=== PATIENT | male | born 1970 | race Caucasian/White ===

== ENCOUNTER 2016-10-01 19:04 | Emergency (ER) | payer OTHER ==
[~2016-10-01] VITALS: Ht 167.6 cm; Wt 99.8 kg
[~2016-10-01 19:04] MED LIST: ANAPROX DS550 MG PO; DAYPRO600 M1 PO; FLEXERIL10 MG PO; K-Lyte/Cl25 MEQ PO; LASIX40 MG PO; MEDROL DOSEPAK4 MG PO; MOTRIN800 MG PO; NAPROSYN500 MG PO; NKHM; ROBAXIN750 MG PO; TOBREX OPHTH S2.5 ML OPH; VICODIN 500 MG-1 TAB PO
[2016-10-01] MEDS ORDERED: Motrin,Rufen800 MG PO (20:36)
== END 2016-10-01 20:37 | disposition home or self-care (01) ==
LOC: ED 19:04
DX: S46.012A Strain of muscle(s) and tendon(s) of the rotator cuff of left shoulder, initial encounter (principal); S46.011A Strain of muscle(s) and tendon(s) of the rotator cuff of right shoulder, initial encounter; F17.200 Nicotine dependence, unspecified, uncomplicated; X58.XXXA Exposure to other specified factors, initial encounter; Y93.89 Activity, other specified; Y92.69 Other specified industrial and construction area as the place of occurrence of the external cause; Y99.9 Unspecified external cause status

== ENCOUNTER 2017-02-08 13:48 | Emergency (ER) | payer OTHER ==
[~2017-02-08] VITALS: Wt 99.8 kg
[~2017-02-08 13:48] MED LIST changes: +Motrin,Rufen800 MG PO
[2017-02-08] MEDS ORDERED: 'PARAFON FORTE500 M1 PO (14:19)
[2017-02-08] MEDS ORDERED: NAPROSYN500 MG PO (14:19)
== END 2017-02-08 15:23 | disposition home or self-care (01) ==
LOC: ED 13:48
DX: M54.9 Dorsalgia, unspecified (principal); R03.0 Elevated blood-pressure reading, without diagnosis of hypertension; F17.200 Nicotine dependence, unspecified, uncomplicated

== ENCOUNTER 2017-02-27 20:50 | Emergency (ER) | payer OTHER ==
[~2017-02-27] VITALS: Ht 167.6 cm; Wt 102.1 kg
[~2017-02-27 20:50] MED LIST changes: +'PARAFON FORTE500 M1 PO
[2017-02-27] MEDS ORDERED: BENADRYL ALLERG25 M5 PO (21:14)
[2017-02-27] MEDS ORDERED: DELTASONE20 M1 PO (21:14)
== END 2017-02-27 21:19 | disposition home or self-care (01) ==
LOC: ED 20:50
DX: R21 Rash and other nonspecific skin eruption (principal); F17.200 Nicotine dependence, unspecified, uncomplicated

== ENCOUNTER 2017-06-07 13:16 | Emergency (ER) | payer OTHER ==
[~2017-06-07] VITALS: Wt 104.3 kg
[~2017-06-07 13:16] MED LIST changes: +BENADRYL ALLERG25 M5 PO; +DELTASONE20 M1 PO
[2017-06-07] MEDS ORDERED: ZOFRAN ODT4 MG SL (15:01)
== END 2017-06-07 20:25 | disposition home or self-care (01) ==
LOC: ED 13:16
DX: K52.9 Noninfective gastroenteritis and colitis, unspecified (principal); R51 Headache; F17.200 Nicotine dependence, unspecified, uncomplicated

== ENCOUNTER 2017-11-05 14:33 | Emergency (ER) | payer OTHER ==
[~2017-11-05] VITALS: Ht 162.5 cm; Wt 104.8 kg
[~2017-11-05 14:33] MED LIST changes: +ZOFRAN ODT4 MG SL
[2017-11-05] MEDS ORDERED: NAPROSYN500 MG PO (14:55)
== END 2017-11-05 16:15 | disposition home or self-care (01) ==
LOC: ED 14:33
DX: M25.512 Pain in left shoulder (principal); F17.200 Nicotine dependence, unspecified, uncomplicated; Z79.899 Other long term (current) drug therapy

== ENCOUNTER → 2018-01-15 | Outpatient (CLI) | payer OTHER | END | disposition home or self-care (01) | LOC: RAD 08:49 | DX: M13.812 Other specified arthritis, left shoulder (principal); M75.52 Bursitis of left shoulder; E78.00 Pure hypercholesterolemia, unspecified; F17.200 Nicotine dependence, unspecified, uncomplicated ==

== ENCOUNTER 2018-06-16 15:53 | Emergency (ER) | payer OTHER ==
[~2018-06-16] VITALS: Ht 162.5 cm; Wt 107.0 kg
[2018-06-16] MEDS ORDERED: AUGMENTIN 875875 MG PO (16:40)
== END 2018-06-16 16:47 | disposition home or self-care (01) ==
LOC: ED 15:53
DX: J32.9 Chronic sinusitis, unspecified (principal); F17.200 Nicotine dependence, unspecified, uncomplicated

== ENCOUNTER 2019-09-26 20:50 | Emergency (ER) | payer BC ==
[~2019-09-26] VITALS: Ht 172.7 cm; Wt 108.9 kg
[~2019-09-26 20:50] MED LIST changes: +AMOXICILLIN500 M2 PO; +AUGMENTIN 875875 MG PO; +FLONASE ALLERG9.9 ML NAS
[2019-09-26 21:52] LABS: BASO # 0.1 10*3/uL (0.0-0.1); BASO % 0.4 % (0.0-1.0); EOS # 0.2 10*3/uL (0.0-0.4); EOS % 1.4 % (1.0-4.0); HEMATOCRIT 45.8 % (42.0-52.0); HEMOGLOBIN 15.4 g/dl (14.0-18.0); LYMPH # 0.5 10*3/uL (1.3-4.4); LYMPH % 4.6 % (27.0-41.0); MEAN CELL VOLUME 93.5 fl (80.0-94.0); MEAN CORPUSCULAR HGB 31.4 pg (27.0-31.0); MEAN CORPUSCULAR HGB CONC 33.6 g/dl (33.0-37.0); MEAN PLATELET VOLUME 9.4 fl (9.6-12.3); MONO % 8.2 % (3.0-9.0); NEUT % 84.7 % (47.0-73.0); PLATELET COUNT AUTOMATED 348 10*3/uL (130-400); RED CELL DISTRI WIDTH 15.3 % (0-14.5); WHITE BLOOD COUNT 11.8 10*3/uL (4.8-10.8)
[2019-09-26 22:03] LABS: ACT PARTIAL THROMBO TIME 28.7 SECONDS (20.0-32.1); INTERNATIONAL NORM RATIO 0.9 (2.0-3.5)
[2019-09-26 22:08] LABS: ALBUMIN 3.7 gm/dl (3.1-4.5); ALKALINE PHOSPHATASE 102 U/L (45-117); BUN 16 mg/dl (7-24); CHLORIDE 107 mmol/L (98-107); CREATININE 1.06 mg/dL (0.70-1.30); SGOT/AST 14 IU/L (3-35); SGPT/ALT 29 U/L (12-78); SODIUM 139 mmol/L (136-145); TOTAL PROTEIN 7.4 gm/dL (6.4-8.2)
[2019-09-26 22:09] LABS: TROPONIN I < 0.015 ng/ml (<0.045)
[2019-09-26] MEDS ORDERED: ZITHROMAX250 MG PO (22:51)
== END 2019-09-26 23:54 | disposition home or self-care (01) ==
LOC: ED 20:50
PROVIDERS: Emergency Medicine Emergency Medical Services
DX: J20.9 Acute bronchitis, unspecified (principal); B34.9 Viral infection, unspecified; F17.210 Nicotine dependence, cigarettes, uncomplicated; Z79.899 Other long term (current) drug therapy; Z79.2 Long term (current) use of antibiotics

== ENCOUNTER 2019-09-27 19:58 | Inpatient (IN) | payer BC ==
[~2019-09-27] VITALS: Ht 170.1 cm; Wt 113.6 kg
[~2019-09-27 19:58] MED LIST changes: +ZITHROMAX250 MG PO
[2019-09-27 20:02] VITALS: BP 112/50
[2019-09-27 20:35] LABS: HEMATOCRIT 43.8 % (42.0-52.0); HEMOGLOBIN 14.4 g/dl (14.0-18.0); MEAN CELL VOLUME 93.4 fl (80.0-94.0); MEAN CORPUSCULAR HGB 30.7 pg (27.0-31.0); MEAN CORPUSCULAR HGB CONC 32.9 g/dl (33.0-37.0); MEAN PLATELET VOLUME 9.8 fl (9.6-12.3); PLATELET COUNT AUTOMATED 290 10*3/uL (130-400); RED BLOOD COUNT 4.69 10*6/uL (4.50-5.90); WHITE BLOOD COUNT 8.7 10*3/uL (4.8-10.8)
[2019-09-27 20:48] LABS: ALBUMIN 3.4 gm/dl (3.1-4.5); ALKALINE PHOSPHATASE 82 U/L (45-117); BUN 22 mg/dl (7-24); CHLORIDE 106 mmol/L (98-107); CREATININE 1.32 mg/dL (0.70-1.30); POTASSIUM 3.4 mmol/L (3.5-5.1); SGOT/AST 35 IU/L (3-35); SGPT/ALT 30 U/L (12-78); SODIUM 137 mmol/L (136-145)
[2019-09-27 20:50] LABS: TROPONIN I < 0.015 ng/ml (<0.045)
[2019-09-27 21:10] LABS: PLATELET SUFFICIENCY NORMAL (NORMAL); TOTAL CELLS COUNTED 100 #CELLS
[2019-09-27 21:31] VITALS: BP 120/54
[2019-09-27 22:23] VITALS: BP 125/57
[2019-09-28] VITALS: BP 121/61
[2019-09-28 07:07] LABS: BASO % 0.5 % (0.0-1.0); EOS # 0.2 10*3/uL (0.0-0.4); EOS % 1.8 % (1.0-4.0); HEMATOCRIT 43.9 % (42.0-52.0); HEMOGLOBIN 14.1 g/dl (14.0-18.0); LYMPH # 0.5 10*3/uL (1.3-4.4); LYMPH % 6.6 % (27.0-41.0); MEAN CELL VOLUME 94.8 fl (80.0-94.0); MEAN CORPUSCULAR HGB 30.5 pg (27.0-31.0); MEAN CORPUSCULAR HGB CONC 32.1 g/dl (33.0-37.0); MEAN PLATELET VOLUME 9.9 fl (9.6-12.3); MONO # 0.4 10*3/uL (0.1-1.0); MONO % 5.4 % (3.0-9.0); NEUT # 6.9 10*3/uL (2.3-7.9); NEUT % 85.2 % (47.0-73.0); PLATELET COUNT AUTOMATED 244 10*3/uL (130-400); RED BLOOD COUNT 4.63 10*6/uL (4.50-5.90); RED CELL DISTRI WIDTH 16.3 % (0-14.5); WHITE BLOOD COUNT 8.1 10*3/uL (4.8-10.8)
[2019-09-28 07:10] LABS: ALBUMIN 3.1 gm/dl (3.1-4.5); ALKALINE PHOSPHATASE 76 U/L (45-117); BUN 20 mg/dl (7-24); CHLORIDE 110 mmol/L (98-107); CHOLESTEROL 156 mg/dL (<200); CREATININE 0.95 mg/dL (0.70-1.30); FREE T4 0.97 ng/dl (0.76-1.46); HDL CHOLESTEROL 32 mg/dl (40-60); LDL CHOLESTEROL 108 mg/dL (9-159); PHOSPHOROUS 2.3 mg/dL (2.5-4.9); POTASSIUM 4.1 mmol/L (3.5-5.1); SGOT/AST 50 IU/L (3-35); SGPT/ALT 32 U/L (12-78); SODIUM 140 mmol/L (136-145); TOTAL PROTEIN 6.5 gm/dL (6.4-8.2); TRIGLYCERIDES 80 mg/dl (<150); VLDL CHOLESTEROL 16 mg/dL (6-40)
[2019-09-28 07:14] LABS: THYROID STIM HORMONE (HS) 0.231 uIU/ml (0.358-4.75)
[2019-09-28 08:09] LABS: VITAMIN D, 25-HYDROXY 15.4 ng/mL (30-100)
[2019-09-28 08:36] VITALS: BP 120/60
[2019-09-28 10:41] LABS: ABG BASE EXCESS -0.7 mmol/L (-2.0-2.0); ARTERIAL BLOOD GAS PH 7.36 (7.35-7.45)
[2019-09-28 12:00] VITALS: BP 128/72
[2019-09-28 16:00] VITALS: BP 145/65
[2019-09-28 20:00] VITALS: BP 130/59
[2019-09-29] VITALS: BP 135/64
[2019-09-29 08:00] VITALS: BP 114/56
[2019-09-29 12:00] VITALS: BP 112/60
[2019-09-29 16:00] VITALS: BP 118/66
[2019-09-29 20:00] VITALS: BP 140/62
[2019-09-30] VITALS: BP 129/63
[2019-09-30 08:00] VITALS: BP 122/60
[2019-09-30 12:00] VITALS: BP 125/59
[2019-09-30 16:00] VITALS: BP 92/74
[2019-09-30 20:00] VITALS: BP 96/77
[2019-10-01] VITALS: BP 115/76
[2019-10-01 06:49] LABS: HEMATOCRIT 41.9 % (42.0-52.0); MEAN CELL VOLUME 95.4 fl (80.0-94.0); MEAN CORPUSCULAR HGB 31.9 pg (27.0-31.0); MEAN CORPUSCULAR HGB CONC 33.4 g/dl (33.0-37.0); MEAN PLATELET VOLUME 10.4 fl (9.6-12.3); PLATELET COUNT AUTOMATED 291 10*3/uL (130-400); RED BLOOD COUNT 4.39 10*6/uL (4.50-5.90); WHITE BLOOD COUNT 13.3 10*3/uL (4.8-10.8)
[2019-10-01 06:57] LABS: CREATININE 0.87 mg/dL (0.70-1.30)
[2019-10-01 07:13] LABS: TOTAL CELLS COUNTED 91 #CELLS
[2019-10-01 07:14] LABS: PLATELET SUFFICIENCY NORMAL (NORMAL)
[2019-10-01 08:00] VITALS: BP 130/62
[2019-10-01 12:00] VITALS: BP 129/79
[2019-10-01 16:00] VITALS: BP 121/62
[2019-10-01 20:00] VITALS: BP 123/63
[2019-10-02] VITALS: BP 125/56
[2019-10-02 08:00] VITALS: BP 120/60
[2019-10-02] MEDS ORDERED: VITAMIN D5000 UNI1 PO (11:46)
[2019-10-02] MEDS ORDERED: PREDNISONE10 MG PO (11:46)
[2019-10-02] MEDS ORDERED: FUROSEMIDE20 M1 PO (11:46)
[2019-10-02] MEDS ORDERED: TAMIFLU 75MG CA75 MG PO (11:46)
== END 2019-10-02 12:50 | disposition home or self-care (01) | DRG 871 ==
LOC: ED 19:58 → EDHOLD 21:44 → 4E 21:44
PROVIDERS: Emergency Medicine; Internal Medicine; ADMIT Family Medicine
DX: A41.9 Sepsis, unspecified organism (principal); J96.01 Acute respiratory failure with hypoxia; E44.0 Moderate protein-calorie malnutrition; J44.1 Chronic obstructive pulmonary disease with (acute) exacerbation; J45.901 Unspecified asthma with (acute) exacerbation; J44.0 Chronic obstructive pulmonary disease with (acute) lower respiratory infection; J20.9 Acute bronchitis, unspecified; J10.1 Influenza due to other identified influenza virus with other respiratory manifestations; R65.20 Severe sepsis without septic shock; R07.89 Other chest pain; F17.210 Nicotine dependence, cigarettes, uncomplicated; E66.9 Obesity, unspecified; R74.0 Nonspecific elevation of levels of transaminase and lactic acid dehydrogenase [LDH]; E87.8 Other disorders of electrolyte and fluid balance, not elsewhere classified; E83.41 Hypermagnesemia; R73.9 Hyperglycemia, unspecified; Z82.49 Family history of ischemic heart disease and other diseases of the circulatory system; Z71.6 Tobacco abuse counseling; Z68.39 Body mass index [BMI] 39.0-39.9, adult

== ENCOUNTER 2019-10-05 17:15 | Emergency (ER) | payer BC ==
[~2019-10-05] VITALS: Ht 170.1 cm; Wt 111.1 kg
[~2019-10-05 17:15] MED LIST changes: +FUROSEMIDE20 M1 PO; +PREDNISONE10 MG PO; +TAMIFLU 75MG CA75 MG PO; +VITAMIN D5000 UNI1 PO
[2019-10-05 18:45] LABS: HEMATOCRIT 48.2 % (42.0-52.0); MEAN CELL VOLUME 93.8 fl (80.0-94.0); MEAN CORPUSCULAR HGB 31.1 pg (27.0-31.0); MEAN CORPUSCULAR HGB CONC 33.2 g/dl (33.0-37.0); MEAN PLATELET VOLUME 9.6 fl (9.6-12.3); NUCLEATED RED BLOOD CELL 0.1 % (0.0-0.0); PLATELET COUNT AUTOMATED 466 10*3/uL (130-400); RED BLOOD COUNT 5.14 10*6/uL (4.50-5.90); RED CELL DISTRI WIDTH 14.9 % (0-14.5); WHITE BLOOD COUNT 15.7 10*3/uL (4.8-10.8)
[2019-10-05 18:50] LABS: BILIRUBIN NEGATIVE (NEGATIVE); BLOOD NEGATIVE (NEGATIVE); CLARITY CLOUDY (CLEAR); COLOR YELLOW (YELLOW); GLUCOSE NEGATIVE (NEGATIVE); KETONE NEGATIVE (NEGATIVE); LEUKO ESTERASE NEGATIVE (NEGATIVE); NITRITE NEGATIVE (NEGATIVE)
[2019-10-05 19:00] LABS: ALBUMIN 2.9 gm/dl (3.1-4.5); ALKALINE PHOSPHATASE 78 U/L (45-117); BUN 19 mg/dl (7-24); CHLORIDE 104 mmol/L (98-107); CREATININE 0.82 mg/dL (0.70-1.30); POTASSIUM 4.5 mmol/L (3.5-5.1); SGOT/AST 17 IU/L (3-35); SGPT/ALT 86 U/L (12-78); SODIUM 138 mmol/L (136-145); TOTAL PROTEIN 6.7 gm/dL (6.4-8.2)
[2019-10-05 19:05] LABS: BURR CELLS FEW; PLATELET SUFFICIENCY NORMAL (NORMAL); TOTAL CELLS COUNTED 100 #CELLS
[2019-10-05 19:16] LABS: EPITHELIAL CELLS 0-2
== END 2019-10-05 20:36 | disposition home or self-care (01) ==
LOC: ED 17:15
PROVIDERS: Physician Assistant
DX: M79.651 Pain in right thigh (principal); M79.652 Pain in left thigh; R20.0 Anesthesia of skin; R20.2 Paresthesia of skin; Z79.899 Other long term (current) drug therapy; Z87.891 Personal history of nicotine dependence

== ENCOUNTER → 2019-10-16 | Outpatient (CLI) | payer BC | END | disposition home or self-care (01) | LOC: RESCLI 00:38 | DX: Z12.11 Encounter for screening for malignant neoplasm of colon (principal); E66.09 Other obesity due to excess calories; F17.200 Nicotine dependence, unspecified, uncomplicated; R53.83 Other fatigue ==

== ENCOUNTER → 2020-05-11 | Outpatient (CLI) | payer BC | END | disposition home or self-care (01) | LOC: COVID19 05:40 | DX: Z03.818 Encounter for observation for suspected exposure to other biological agents ruled out (principal) ==

== ENCOUNTER 2021-09-17 11:16 | Emergency (ER) | payer OTHER ==
[~2021-09-17] VITALS: Ht 167.6 cm; Wt 111.1 kg
[2021-09-17 15:18] LABS: HEMATOCRIT 48.6 % (42.0-52.0); MEAN CORPUSCULAR HGB 30.2 pg (27.0-31.0); MEAN CORPUSCULAR HGB CONC 33.5 g/dl (33.0-37.0); MEAN PLATELET VOLUME 9.5 fl (9.6-12.3); PLATELET COUNT AUTOMATED 313 10*3/uL (130-400); RED CELL DISTRI WIDTH 15.4 % (0-14.5); WHITE BLOOD COUNT 7.9 10*3/uL (4.8-10.8)
[2021-09-17 15:34] LABS: ALBUMIN 3.2 gm/dl (3.1-4.5); ALKALINE PHOSPHATASE 93 U/L (45-117); BUN 17 mg/dl (7-24); CHLORIDE 110 mmol/L (98-107); CREATININE 0.87 mg/dL (0.70-1.30); POTASSIUM 4.1 mmol/L (3.5-5.1); SGOT/AST 19 IU/L (3-35); SGPT/ALT 37 U/L (12-78); SODIUM 140 mmol/L (136-145); TOTAL PROTEIN 7.3 gm/dL (6.4-8.2)
[2021-09-17 15:38] LABS: BASOPHILS 1 % (0-1); PLATELET SUFFICIENCY NORMAL (NORMAL); TOTAL CELLS COUNTED 100 #CELLS
[2021-09-17] MEDS ORDERED: PREDNISONE20 M1 PO (17:35)
[2021-09-17] MEDS ORDERED: VIBRAMYCIN100 MG PO (17:35)
[2021-09-17] MEDS ORDERED: PROVENTIL HFA6.7 GM INH (17:35)
== END 2021-09-17 18:29 | disposition home or self-care (01) ==
LOC: ED 11:16
PROVIDERS: Physician Assistant
DX: J18.9 Pneumonia, unspecified organism (principal); Z20.822 Contact with and (suspected) exposure to COVID-19

== ENCOUNTER → 2021-09-26 | Outpatient (CLI) | payer OTHER ==
[~2021-09-26] MED LIST changes: +PREDNISONE20 M1 PO; +PROVENTIL HFA6.7 GM INH; +VIBRAMYCIN100 MG PO
== END ==
LOC: COVID19 15:13
PROVIDERS: ATTEND Internal Medicine
DX: U07.1 COVID-19 (principal)

== ENCOUNTER → 2021-12-12 | Outpatient (CLI) | payer OTHER | END | disposition home or self-care (01) | LOC: CT 08:00 | PROVIDERS: ATTEND Surgery | DX: R91.8 Other nonspecific abnormal finding of lung field (principal) ==

== ENCOUNTER → 2022-06-04 | Outpatient (CLI) | payer OTHER | END | disposition home or self-care (01) | LOC: RAD 17:18 | PROVIDERS: ATTEND Surgery | DX: M19.072 Primary osteoarthritis, left ankle and foot (principal); M77.32 Calcaneal spur, left foot ==

== ENCOUNTER → 2022-09-14 | Outpatient (CLI) | payer OTHER ==
[2022-09-14 10:11] LABS: ALKALINE PHOSPHATASE 98 U/L (46-116); BUN 9 mg/dl (9-23); CHLORIDE 104 mmol/L (98-107); CHOLESTEROL 114 mg/dL (<200); CREATININE 0.88 mg/dL (0.70-1.30); LDL CHOLESTEROL 52 mg/dL (9-159); POTASSIUM 4.4 mmol/L (3.4-5.1); SGPT/ALT 18 U/L (10-49); TOTAL PROTEIN 7.3 gm/dL (6.0-8.0); TRIGLYCERIDES 120 mg/dl (<150)
[2022-09-14 10:24] LABS: BASO # 0.1 10*3/uL (0.0-0.1); BASO % 0.8 % (0.0-1.0); EOS # 0.1 10*3/uL (0.0-0.4); EOS % 0.8 % (1.0-4.0); HEMATOCRIT 48.5 % (42.0-52.0); LYMPH # 1.7 10*3/uL (1.3-4.4); LYMPH % 16.1 % (27.0-41.0); MEAN CELL VOLUME 92.4 fl (80.0-94.0); MEAN CORPUSCULAR HGB 30.7 pg (27.0-31.0); MEAN CORPUSCULAR HGB CONC 33.2 g/dl (33.0-37.0); MEAN PLATELET VOLUME 9.3 fl (9.6-12.3); MONO # 0.6 10*3/uL (0.1-1.0); MONO % 6.1 % (3.0-9.0); NEUT # 7.9 10*3/uL (2.3-7.9); NEUT % 75.4 % (47.0-73.0); PLATELET COUNT AUTOMATED 382 10*3/uL (130-400); RED BLOOD COUNT 5.25 10*6/uL (4.50-5.90); RED CELL DISTRI WIDTH 15.7 % (0-14.5); WHITE BLOOD COUNT 10.5 10*3/uL (4.8-10.8)
== END | disposition home or self-care (01) ==
LOC: US 09:30 → LAB 09:32
PROVIDERS: ATTEND Surgery
DX: K76.0 Fatty (change of) liver, not elsewhere classified (principal); C61 Malignant neoplasm of prostate; E78.5 Hyperlipidemia, unspecified; R19.00 Intra-abdominal and pelvic swelling, mass and lump, unspecified site

== ENCOUNTER 2025-03-09 07:22 | Emergency (ER) | payer OTHER ==
[~2025-03-09] VITALS: Wt 113.4 kg
[2025-03-09] MEDS ORDERED: LISSAMINE GREEN 1.5 MG STRIP OP ONE (07:40)
== END 2025-03-09 08:12 | disposition home or self-care (01) ==
LOC: ED 07:22
DX: B30.9 Viral conjunctivitis, unspecified (principal); Z79.899 Other long term (current) drug therapy

== ENCOUNTER 2025-07-04 06:40 | Emergency (ER) | payer OTHER ==
[~2025-07-04] VITALS: Ht 170.1 cm; Wt 108.9 kg
[2025-07-04] MEDS ORDERED: ERYTHROMYCIN OPH1 GM OPH (07:18)
[2025-07-04] MEDS ORDERED: ERYTHROMYCIN 1 GM TUBE OPH ONE (07:20)
== END 2025-07-04 07:29 | disposition home or self-care (01) ==
LOC: ED 06:40
DX: H10.9 Unspecified conjunctivitis (principal); F17.210 Nicotine dependence, cigarettes, uncomplicated